=== PATIENT | female | born 1960 | race Caucasian/White ===

== ENCOUNTER 2022-12-05 10:07 | Day surgery (SDC) | payer OTHER, SELFPAY ==
[2022-12-05 10:33] VITALS: BMI 27.0
[2022-12-05 10:51] VITALS: BP 143/51; PULSE 63; RESP 14; TEMP 36.3; O2SAT 99
[2022-12-05] MEDS: LACTATED RINGERS 1,000 ML 42 ML IV (10:54)
--- NOTE | 2022-12-05 11:27 | P.HP_ITS ---
History of Present Illness History of Present Illness Date Patient Seen: 12/05/22 Time Patient Seen: 11:27 Chief complaint: Colonoscopy Narrative: Last colonoscopy was 10 years ago. No family history or symptoms concerning for colon cancer. [facility] Medical History Constipation Arthritis UTI (urinary tract infection) Psoriasis ADHD Depression Anxiety Social History household members: spouse Smoking Status: Former smoker alcohol intake: current Meds Home Medications and Allergies Home Medications Medication Instructions Recorded Confirmed Type Lactobacillus 40-Bifidobact 1 cap PO DAILY 12/05/22 12/05/22 History 3-S.thermophilus 100 billion cell capsule (Probiotic) bupropion HCl 75 mg tablet 400 mg PO DAILY 12/05/22 12/05/22 History dexmethylphenidate 10 mg tablet 10 mg PO DAILY 12/05/22 12/05/22 History dextroamphetamine sulfate 15 mg 30 mg PO DAILY 12/05/22 12/05/22 History capsule,extended release estradiol 0.01% (0.1 mg/gram) 1 appful vaginal DAILY 12/05/22 12/05/22 History vaginal cream guanfacine 1 mg tablet,extended 2 mg PO BEDTIME 12/05/22 12/05/22 History release 24 hr Allergies Allergy/AdvReac Type Severity Reaction Status Date / Time No Known Drug Allergies Allergy Verified 12/05/22 10:33 Review of Systems Review of Systems ROS: Yes All systems reviewed with the patient and are negative except as otherwise documented Exam Vital Signs (past 8 hours): - 12/05/22 10:51 Temperature 97.3 F L Pulse Rate 63 Respiratory Rate 14 Blood Pressure 143/51 H Pulse Oximetry 99 Oxygen Delivery Method Room Air Oxygen Delivery Method Room Air Const General: cooperative, healthy appearing and comfortable Nutritional Appearance: average body habitus HENMT Head: normocephalic and atraumatic Ears: hearing grossly normal bilaterally Eyes Sclera: sclerae normal Neck Neck: trachea midline Chest Chest: normal inspection of the chest Resp Effort & Inspection: normal respiratory effort and able to speak in complete sentences Cardio Rate: regular rate Rhythm: regular rhythm Skin General: elasticity normal Neuro General: patient alert, patient awake and patient oriented x3 Psych Appearance: grossly normal Mental Status: mental status grossly normal Judgment: judgment good Assessment & Plan Assessment & Plan narrative: colon cancer screening using colonoscopy with anesthesia Time Spent With Patient Time with patient: less than 30 minutes
--- NOTE | 2022-12-05 11:34 | PM.OP.COLON ---
Operative Date/Time/Diagnoses Date of procedure: 12/05/22 Time of procedure: 11:36 Pre-op diagnosis: colon cancer screening Post-op diagnosis: same Procedure & Clinicians Study performed: colonoscopy with anesthesia Same procedure as scheduled: Yes Indications: colon cancer screening Surgeon: Aileen Faust Procedure Notes Procedure in detail: Preop diagnosis: Colon cancer screening Postop diagnosis: Same Operative procedure: Colonoscopy with anesthesia Surgeon: Mayelin Faust MD Findings: Normal colonoscopy. No diverticulosis or polyps identified Procedure: Patient placed in lateral position. Rectal exam performed showing hemorrhoidal tags but no masses, normal sphincter tone. Scope was inserted into the rectum and advanced to ileocecal valve with the assist of external abdominal pressure. Insufflation extraction of the scope including retroflex in the rectum had the above findings. Impression: No polyps. No significant diverticulosis. Plan: Repeat colonoscopy in 10 years unless otherwise indicated by change in clinical condition Specimen(s): none sent Complications: none Post-procedure Recommendations: Colonoscopy in 10 years Follow up: as needed Disposition: PACU
[2022-12-05 12:13] VITALS: BP 126/65; PULSE 63; RESP 20; TEMP 36.7; O2SAT 99
[2022-12-05 12:18] VITALS: BP 121/76; PULSE 63; RESP 17; O2SAT 100
[2022-12-05 12:23] VITALS: BP 137/79; PULSE 70; RESP 18; O2SAT 95
[2022-12-05 12:27] VITALS: BP 140/80; PULSE 70; RESP 20; TEMP 36.3; O2SAT 98
== END 2022-12-05 12:42 | disposition home or self-care (01) ==
PROVIDERS: Surgery; PCP Internal Medicine; Referring Provider Surgery; Visit Provider Surgery
PROC: 0DJD8ZZ Inspection of Lower Intestinal Tract, Via Natural or Artificial Opening Endoscopic (ICD-10-PCS; CPT 45378; principal; 2022-12-05 11:30)
DX: Z12.11 Encounter for screening for malignant neoplasm of colon (principal)
CPT/HCPCS: 45378